=== PATIENT | male | born 1965 | race Caucasian/White ===

== ENCOUNTER 2022-12-27 12:20 | Emergency (ER) | payer OTHER ==
[~2022-12-27] VITALS: Ht 182.9 cm; Wt 99.8 kg
--- NOTE | 2022-12-27 12:38 | NUR ---
Dr Segura aspirated the blister, pt tolorated well.
[2022-12-27] MEDS ORDERED: MUPIROCIN 2% OINT 22 GM TUBE TP ONE (12:45)
[2022-12-27] MEDS ORDERED: NEOMY/BACITRA/POLYMYXIN B OINT UD PACKET TP ONE ×2 (12:54→13:15)
[2022-12-27] MEDS ORDERED: MUPI15CR TP (12:56)
--- NOTE | 2022-12-27 13:04 | NUR ---
Patient discharged to home in stable condition. Written and verbal after care instructions given. Patient verbalizes understanding of instructions. Stressed follow up or return to ER for worsening s/s.
[2022-12-27 13:05] VITALS: BP 149/89
== END 2022-12-27 13:05 | disposition home or self-care (01) ==
LOC: ER 12:20
DX: S80.822A Blister (nonthermal), left lower leg, initial encounter (principal); S80.862A Insect bite (nonvenomous), left lower leg, initial encounter; W57.XXXA Bitten or stung by nonvenomous insect and other nonvenomous arthropods, initial encounter; Y93.89 Activity, other specified; Y92.89 Other specified places as the place of occurrence of the external cause; Y99.8 Other external cause status
CPT/HCPCS: A4663